=== PATIENT | male | born 1995 | race Caucasian/White ===

== ENCOUNTER 2020-11-01 07:38 | Emergency (ER) | payer OTHER ==
[~2020-11-01] VITALS: Ht 170.2 cm; Wt 86.3 kg
[2020-11-01 07:52] VITALS: BP 143/60
[2020-11-01] MEDS ORDERED: traMADol 50 MG TABLET PO ONE (08:00)
[2020-11-01] MEDS ORDERED: TRAM50TA PO (08:06)
[2020-11-01] MEDS ORDERED: ACYC800T PO (08:06)
--- NOTE | 2020-11-01 08:06 | PHYS DOC ---
Past History Past Medical History: No Pertinent History Past Surgical History: Tonsillectomy, Other Additional Past Surgical Histo: PILOSTENOSIS SX; HERNIA REPAIR Alcohol Use: Occasionally Adult General Chief Complaint Chief Complaint: SKIN RASH/ABSCESS HPI HPI Patient is a 24M no significant past history presents emergency department for new onset rash pain. Patient states that 3 days ago he started having a red raised rash over the left anterior chest. Her blood type is a positive burning and tingling sensation in the area. Noticed worsening of the vesicles in raised skin. Initially thought it was a bug bite but does not call pain pain. Does have a history of chickenpox as a kid. Review of Systems Review of Systems Constitutional: Denies fever or chills [] Eyes: Denies change in visual acuity, redness, or eye pain [] HENT: Denies nasal congestion or sore throat [] Respiratory: Denies cough or shortness of breath [] Cardiovascular: No additional information not addressed in HPI [] GI: Denies abdominal pain, nausea, vomiting, bloody stools or diarrhea [] : Denies dysuria or hematuria [] Musculoskeletal: Denies back pain or joint pain [] Integument: Denies rash or skin lesions [] Neurologic: Denies headache, focal weakness or sensory changes [] Endocrine: Denies polyuria or polydipsia [] All other systems were reviewed and found to be within normal limits, except as documented in this note. Current Medications Current Medications Current Medications Medications (Trade) Dose Ordered Sig/Aleah Start Time Stop Time Status Last Admin Dose Admin Ketorolac Tromethamine (Toradol 30mg Vial) 30 mg 1X ONCE 11/01/20 08:15 11/01/20 08:16 Tramadol HCl (Ultram) 50 mg 1X ONCE 11/01/20 08:00 11/01/20 08:01 DC Allergies Allergies Allergies Coded Allergies Type Severity Reaction Last Updated Verified meperidine Allergy Unknown 11/01/20 Yes Physical Exam Physical Exam Constitutional: Well developed, well nourished, no acute distress, non-toxic appearance. [] HENT: Normocephalic, atraumatic, bilateral external ears normal, oropharynx moist, no oral exudates, nose normal. [] Eyes: PERRLA, EOMI, conjunctiva normal, no discharge. [] Neck: Normal range of motion, no tenderness, supple, no stridor. [] Cardiovascular:Heart rate regular rhythm, no murmur [] Lungs & Thorax: Bilateral breath sounds clear to auscultation [] Abdomen: Bowel sounds normal, soft, no tenderness, no masses, no pulsatile masses. [] Skin: Warm, dry, no erythema. 2 distinct areas of raised vesicles on a erythematous base of the left anterior chest and a T6 distribution Back: No tenderness, no CVA tenderness. [] Extremities: No tenderness, no cyanosis, no clubbing, ROM intact, no edema. [] Neurologic: Alert and oriented X 3, normal motor function, normal sensory function, no focal deficits noted. [] Psychologic: Affect normal, judgement normal, mood normal. [] Current Patient Data Vital Signs Vital Signs Date Time Temp Pulse Resp B/P (MAP) Pulse Ox O2 Delivery O2 Flow Rate FiO2 11/01/20 07:52 98.1 60 18 143/60 (87) 100 EKG EKG [] Radiology/Procedures Radiology/Procedures [] Heart Score Risk Factors: Risk Factors: DM, Current or recent (<one month) smoker, HTN, HLP, family history of CAD, obesity. Risk Scores: Risk Factors: DM, Current or recent (<one month) smoker, HTN, HLP, family history of CAD, obesity. Course & Med Decision Making Course & Med Decision Making Pertinent Labs and Imaging studies reviewed. (See chart for details) 18-year-old male with a new onset of left anterior rash is most consistent with acute shingles. We will treat the patient with acyclovir and a single dose of prednisone as well as pain medication and plan for discharge Dragon Disclaimer Dragon Disclaimer This electronic medical record was generated, in whole or in part, using a voice recognition dictation system. Departure Departure: Impression: Primary Impression: Shingles Disposition: 01 DC HOME SELF CARE/HOMELESS Condition: GOOD Referrals: PCP,NO (PCP) Patient Instructions: Shingles Additional Instructions: Thank you for visiting our emergency department. You were seen for the rash on your chest. This appears to be shingles or reactivation of herpes zoster virus. We have given you medication to attempt to treat this. Please return the emergency department if there is any sudden worsening of your symptoms, chest pain or fever greater than 101 F Scripts Tramadol Hcl (TRAMADOL HCL) 50 Mg Tablet 50 MG PO PRN Q6HRS PRN for PAIN for 3 Days, #12 TAB 0 Refills Prov: ALEX ENRIQUEZ MD 11/01/20 Acyclovir (ACYCLOVIR) 800 Mg Tablet 1 TAB PO 5XDAY for shingles for 7 Days, #35 TAB Prov: ALEX ENRIQUEZ MD 11/01/20 ALEX ENRIQUEZ MD Nov 01, 2020 08:06
[2020-11-01] MEDS ORDERED: KETOROLAC 30 MG/ML VIAL. IM ONE (08:15)
== END 2020-11-01 08:18 | disposition home or self-care (01) ==
LOC: ER 07:38
DX: B02.9 Zoster without complications (principal); R20.2 Paresthesia of skin; Z88.8 Allergy status to other drugs, medicaments and biological substances
CPT/HCPCS: 96372; 99283; J1885